=== PATIENT | female | born 1985 | race Caucasian/White ===

== ENCOUNTER 2017-03-22 21:46 | Emergency (ER) | payer MEDICAID ==
[~2017-03-22] VITALS: Ht 160 cm; Wt 57.0 kg
[~2017-03-22 21:46] MED LIST: IBUP-1542 PO
[2017-03-22 21:50] VITALS: Ht 160 cm; Wt 57.0 kg
--- NOTE | 2017-03-22 22:52 | ERD ---
ER Documentation Chief Complaint Date/Time DATE: 03/22/17 TIME: 22:50 Chief Complaint chest wall pain when deep breathing today HPI This a 31-year-old female who presents the emergency department today complaining of chest pain that started today. Patient states that she has pain when she takes a deep breath and pushes on it. Denies any cough, fevers or chills. States she took Tylenol at home. ROS All systems reviewed and are negative except as per history of present illness. Medications Home Meds Active Scripts Acetaminophen* (Tylophen*) 500 Mg Capsule, 1 CAP PO Q6H Y for PAIN AND OR ELEVATED TEMP, #30 CAP Prov:NICOLA DONALD PA-C 03/23/17 Naproxen* (Naprosyn*) 500 Mg Tablet, 500 MG PO BID Y for PAIN AND/OR INFLAMMATION, #30 TAB Prov:NICOLA DONALD PA-C 03/23/17 Ibuprofen* (Motrin*) 600 Mg Tab, 600 MG PO Q6, #30 TAB Prov:BECKY QURESHI 01/02/16 Allergies Allergies: Coded Allergies: No Known Allergy (Verified Allergy, Unknown, NONE, 01/12/08) PMhx/Soc Medical and Surgical Hx: pt denies Medical Hx, pt denies Surgical Hx History of Surgery: No Anesthesia Reaction: No Hx Neurological Disorder: No Hx Respiratory Disorders: No Hx Cardiac Disorders: No Hx Psychiatric Problems: No Hx Miscellaneous Medical Probl: No Hx Alcohol Use: No Hx Substance Use: No Hx Tobacco Use: No Physical Exam Vitals Vital Signs Date Time Temp Pulse Resp B/P Pulse Ox O2 Delivery O2 Flow Rate FiO2 03/22/17 21:50 97.8 70 20 135/63 99 Physical Exam Const: No acute distress Head: Atraumatic Eyes: Normal Conjunctiva ENT: Normal External Ears, Nose and Mouth. Neck: Full range of motion..~ No meningismus. Resp: Clear to auscultation bilaterally. No absent breath sounds. No wheezing. Tenderness to palpation left side of chest wall. Pain with trunk rotation Cardio: Regular rate and rhythm, no murmurs Skin: No petechiae or rashes Neur: Awake and alert Psych: Normal Mood and Affect Results 24 hrs Current Medications Medications (Trade) Dose Ordered Sig/Flako Route PRN Reason Start Time Stop Time Status Last Admin Dose Admin Ibuprofen (Motrin) 800 mg ONCE ONCE PO 03/22/17 23:00 03/22/17 23:01 DC 03/22/17 23:07 DIAGNOSTIC IMAGING REPORT Patient: CHANDRA UP : 1985 Age: 31 Sex: F MR #: [id number] DOS: 03/22/17 0000 Ordering MD: NICOLA DONALD PA-C Location: [facility] Room/Bed: PROCEDURE: CHEST - 1 VIEW CLINICAL INDICATION: 31-year-old female with chest pain. TECHNIQUE: A single frontal AP portable upright view of the chest was performed. The images were reviewed on a PACS workstation. COMPARISON: None. FINDINGS: The cardiomediastinal silhouette has a normal appearance. There is no evidence for an infiltrate. The pulmonary vascularity is within normal limits. There is no evidence for pneumothorax or pneumomediastinum. The osseous structures are intact. IMPRESSION: No evidence for active cardiopulmonary disease. .Nixon Lau MD, MD Date Time Electronically viewed and signed by .Nixon Lau MD, MD on 03/23/2017 00:27 .M/ CC: NICOLA DONALD PA-C Procedures/MDM This a 31-year-old female who presents to the emergency department today containing of chest wall pain that started today. Patient had indicated that her pain is worse with deep inspiration and movement. I did obtain an EKG and chest x-ray EKG read and interpreted by Dr. Berry. Rate [address] elevation. No QT elongation. Normal sinus rhythm. Low suspicion for PE, acute NE, pericarditis per Chest x-ray shows no evidence for active cardiopulmonary disease. There is evidence no evidence for infiltrate. No evidence for pneumothorax or pneumomediastinum Patient symptoms at this time is consistent with chest wall pain and likely costochondritis given the patient's pain is reproducible with movement and palpation. Low suspicion for pneumonia, PE, abscess, pleural effusion. Patient was given Motrin here in the emergency department. I will give her prescription for Naprosyn and tylenol for home. At this time the patient is stable for discharge and outpatient management. Patient should follow up with their PCP in the next 1-2 days. They may return to the emergency department sooner for any persistent or worsening of symptoms. Patient understood and agreed with the plan. Departure Diagnosis: Primary Impression: Chest wall pain Condition: NICOLA Cummings PA-C March 22, 2017 22:51
[2017-03-22] MEDS ORDERED: IBUPROFEN 800 MG TAB PO ONE (23:00)
--- NOTE | 2017-03-23 00:28 | RADRPT ---
PROCEDURE: CHEST - 1 VIEW CLINICAL INDICATION: 31-year-old female with chest pain. TECHNIQUE: A single frontal AP portable upright view of the chest was performed. The images were reviewed on a PACS workstation. COMPARISON: None. FINDINGS: The cardiomediastinal silhouette has a normal appearance. There is no evidence for an infiltrate. T he pulmonary vascularity is within normal limits. There is no evidence for pneumothorax or pneumomed iastinum. The osseous structures are intact. IMPRESSION: No evidence for active cardiopulmonary disease. .Nixon Lau MD, MD Date Time Electronically viewed and signed by .Nixon Lau MD, on 03/23/2017 00:27 .M/
[2017-03-23] MEDS ORDERED: ACET500C5 PO (00:37)
[2017-03-23] MEDS ORDERED: NAPR-260 PO (00:37)
[2017-03-23 00:49] VITALS: BP 126/61; PULSE 58; RESP 20; TEMP 97.8
== END 2017-03-23 00:37 | disposition home or self-care (01) ==
LOC: FTE 21:46
DX: R07.89 Other chest pain (principal)
CPT/HCPCS: 71010; 93005; Z7502; Z7610